=== PATIENT | female | born 1985 | race Caucasian/White ===

== ENCOUNTER 2022-10-19 20:21 | Outpatient (OUT) | payer OTHER, BC, SELFPAY ==
[2022-10-22 22:06] LABS: Age Gdln ACOG Testing Note (.); HPV Aptima Negative (Negative); IGP, Aptima HPV, rfx 16/18,45 Note (.)
== END 2022-10-19 20:22 | disposition home or self-care (01) ==
PROVIDERS: PCP Physician Assistant; Visit Provider Physician Assistant
DX: Z12.4 Encounter for screening for malignant neoplasm of cervix (principal); Z11.51 Encounter for screening for human papillomavirus (HPV)
CPT/HCPCS: 87624; G0145

== ENCOUNTER 2023-10-25 19:27 | Outpatient (REF) | payer BC, SELFPAY ==
[2023-10-31 12:09] LABS: Age Gdln ACOG Testing Note (.); HPV Aptima Negative (Negative); IGP, Aptima HPV, rfx 16/18,45 Note (.)
== END 2023-10-25 19:28 | disposition home or self-care (01) ==
LOC: LAB 19:27
PROVIDERS: PCP Physician Assistant; Visit Provider Obstetrics & Gynecology
DX: Z01.419 Encounter for gynecological examination (general) (routine) without abnormal findings (principal)
CPT/HCPCS: 88175

== ENCOUNTER 2024-10-29 19:46 | Outpatient (REF) | payer BC, SELFPAY ==
[2024-11-01 16:09] LABS: Age Gdln ACOG Testing Note (.); IGP, Aptima HPV, rfx 16/18,45 Note (.)
== END 2024-10-29 19:47 | disposition home or self-care (01) ==
LOC: LAB 19:46
PROVIDERS: PCP Physician Assistant; Visit Provider Physician Assistant
DX: Z01.419 Encounter for gynecological examination (general) (routine) without abnormal findings (principal)
CPT/HCPCS: 87624; 88175

== ENCOUNTER 2024-11-09 09:45 | Outpatient (OUT) | payer BC, SELFPAY ==
--- OUTSIDE RECORDS SUMMARY | 2024-10-29 10:00 | XMS_ITS | Encounter Summary ---
Author Organization [facility] Address [address] [facility] [place] [address] Care Team Providers Care Hoop Rolls Operator Name Role Phone Unavailable Primary Care Provider Unavailabl e Reason for Visit * Reason Comments Well Women Visit Encounter Details Date Type Department Care Team (Late st Contact Info) Description 10/29/2024 10:00 AM EDT Office Visit [facility] [address] [place] [phone] La Lopez PA [address] [facility] [place] [address] Well woman exam with routine gynecological exam; Breast cancer screening by mammogram Social History Tobacco Use Types Packs/Day Years Used Date Smoking Tobacco: Never Assessed Comments No Sex and Gender Information Value Date Recorded Sex Assigned at Not on file Legal Sex Female 10:13 PM EDT Gender Identity Not on file Sexual Orientation Not on file documented as of this encounter Last Filed Vital Signs Vital Sign Reading Time Taken Comments Blood Pressure 112/74 10/29/2024 9:54 AM EDT Pulse - - Temperature - - Respiratory Rate - - Oxygen Saturation - - Inhaled Oxygen Concentration - - Weight 102 kg (223 lb 12.8 oz) 10/29/2024 9:54 A M EDT Height - - Body Mass Index 38.42 10/19/2022 3:44 PM EDT documented in this encounter Progress Notes * JORDYN Brown - 10/29/2024 10:00 AM EDT Reason for Appointment: Patient ID: Laura Maldonado is a 39 y.o. female who presents for Well Women Visit Patient presents today for Annual Exam. MEDICATIONS Current Outpatient Medications Medication Instructions ARIPiprazole (Abilify) 5 MG tablet busPIRone (Buspar) 10 MG tablet lisdexamfetamine (VYVANSE) 30 mg, Oral, Daily semaglutide (OZEMPIC) 1 mg, Subcutaneous sertraline (Zoloft) 100 MG tablet ALLERGIES Allergies Allergen Reactions Hydrocodone-Acetaminophen Other Reaction(s): Not available Hydromorphone Hallucinations Other Reaction(s): Not available PROBLEMS Active Ambulatory Problems Diagnosis Date Noted No Active Ambulatory Problems Resolved Ambulatory Problems Diagnosis Date Noted No Resolved Ambulatory Problems No Additional Past Medical History HISTORY PAST MEDICAL HISTORY SOCIAL HISTORY No past medical history on file. Social History Tobacco Use Smoking status: Not on file Smokeless tobacco: Not on file Substance Use Topics Alcohol use: Not on file Drug use: Not on file FAMILY HISTORY No family history on file. SURGICAL HISTORY Past Surgical History: Procedure Laterality Date CERVICAL BIOPSY W/ LOOP ELECTRODE EXCISION 2018 REVIEW OF SYSTEMS Review of Systems: Review of Systems Constitutional: Negative. HENT: Negative. Eyes: Negative. Respiratory: Negative. Cardiovascular: Negative. Gastrointestinal: Negative. Genitourinary: Negative. Musculoskeletal: Negative. Skin: Negative. Neurological: Negative. All other systems reviewed and are negative. Hematological: Negative. Endocrine: Negative. Allergic/Immunologic: Negative. OBJECTIVE Objective: Physical Exam Constitutional: Appearance: Normal appearance. Genitourinary: Genitourinary Comments: Large breast with history of known benign mass in right breast around 11o clock, denies changes Right Adnexa: not tender and no mass present. Left Adnexa: not tender and no mass present. No cervical discharge. Breasts: Breasts are soft. Right: Normal. Left: Normal. HENT: Head: Normocephalic. Nose: Nose normal. Mouth/Throat: Mouth: Mucous membranes are moist. Cardiovascular: Rate and Rhythm: Normal rate. Pulmonary: Effort: Pulmonary effort is normal. Abdominal: General: Bowel sounds are normal. Palpations: Abdomen is soft. Musculoskeletal: General: Normal range of motion. Cervical back: Normal range of motion. Neurological: General: No focal deficit present. Mental Status: She is alert. Skin: General: Skin is warm and dry. Psychiatric: Mood and Affect: Mood normal. Vitals and nursing note reviewed. Exam conducted with a internal control manager present. Vitals: Estimated body mass index is 38.42 kg/m?? as calculated from the following: Height as of 10/19/22: 5' 4 . Weight as of this encounter: 223 lb 12.8 oz. BP: 112/74 No LMP recorded. Patient has had an implant. ASSESSMENT & PLAN ICD-10-CM 1. Well woman exam with routine gynecological exam Z01.419 THIN PREP TIS PAP AND HR HPV DNA 2. Breast cancer screening by mammogram Z12.31 Bilateral screening mammogram Bilateral screening mammogram Annual Exam: Patient presents today for an annual exam. Patient states she is doing well and has no complaints. Pap was obtained without difficulty. Orders Placed This Encounter Procedures Bilateral screening mammogram Large breasts with history of known benign mass in right breast around 11o clock, denies changes and states does routine self exams Follow Up: Patient is to return in one year for annual unless needed otherwise. Documented by JORDYN Brown on behalf of: JORDYN Brown documented in this encounter Miscellaneous Notes * Addendum Note - Rosalind Das LPN - 10/29/2024 10:00 AM EDTAddended by: ROSALIND DAS on: 10/29/2024 03:56 PM Modules accepted: Orders documented in this encounter Plan of Treatment Upcoming Encounters Date Type Department Care Team (Late st Contact Info) Description 11/04/2025 11:00 AM EDT Procedure Visit [facility] [address] [phone] La Lopez PA [address] [facility] [place] [address] Scheduled Orders Name Type Priority Associated Diagnoses Orde r Schedule Bilateral screening mammogram Imaging Routine Breast cancer screening by mammogram Expected: 10/29/2024 (Approximate), Expires: 12/30/2025 THIN PREP TIS PAP AND HR HPV DNA Pathology and Cytology Routine Well woman exam with routine gynecological exam Ordered: 10/29/2024 documented as of this encounter Visit Diagnoses Diagnosis Well woman exam with routine gynecological exam Routine gynecological examination Breast cancer screening by mammogram documented in this encounter
--- OUTSIDE RECORDS SUMMARY | 2024-11-05 10:30 | XMS_ITS | Encounter Summary ---
Author Organization [facility] Address [address] [facility] [place] [address] Care Team Providers Care Skein Tier Name Role Phone Unavailable Primary Care Provider Unavailabl e Reason for Visit * Reason Comments IUD removal/insertion Encounter Details Date Type Department Care Team (Late st Contact Info) Description 11/05/2024 10:30 AM EDT Procedure Visit [facility] Padilla [facility] [address] [facility] [place] [phone] Mao Han DO [address] [facility] [place] [address] Encounter for IUD removal; Encounter for IUD insertion Social History Tobacco Use Types Packs/Day Years Used Date Smoking Tobacco: Never Assessed Comments No Sex and Gender Information Value Date Recorded Sex Assigned at Not on file Legal Sex Female 10:13 PM EDT Gender Identity Not on file Sexual Orientation Not on file documented as of this encounter Last Filed Vital Signs Vital Sign Reading Time Taken Comments Blood Pressure 122/82 11/05/2024 10:45 AM EDT Pulse - - Temperature - - Respiratory Rate - - Oxygen Saturation - - Inhaled Oxygen Concentration - - Weight 101 kg (222 lb) 11/05/2024 10:45 AM EDT Height - - Body Mass Index 38.11 10/19/2022 3:44 PM EDT documented in this encounter Progress Notes * Rosalind Cantu LPN - 11/05/2024 10:30 AM EDTAssociated Order(s): IUD Removal Post-Procedure Diagnose(s): Encounter for IUD removal Reason for Appointment: Patient ID: Laura Maldonado is a 39 y.o. female who presents for IUD removal/insertion Patient presents today for a IUD Removal appointment. MEDICATIONS Current Outpatient Medications Medication Instructions ARIPiprazole (Abilify) 5 MG tablet busPIRone (Buspar) 10 MG tablet lisdexamfetamine (VYVANSE) 30 mg, Oral, Daily sertraline (Zoloft) 100 MG tablet ALLERGIES Allergies [...] Objective: Physical Exam Constitutional: Appearance: Normal appearance. She is well-developed. Genitourinary: Vulva normal. Cardiovascular: Rate and Rhythm: Normal rate and regular rhythm. Pulmonary: Effort: Pulmonary effort is normal. Breath sounds: Normal breath sounds. Abdominal: General: Bowel sounds are normal. There is no distension. Palpations: Abdomen is soft. Tenderness: There is no abdominal tenderness. There is no guarding or rebound. Musculoskeletal: General: No swelling. Normal range of motion. Right lower leg: No edema. Left lower leg: No edema. Neurological: Mental Status: She is alert and oriented to person, place, and time. Skin: General: Skin is warm and dry. Psychiatric: Mood and Affect: Mood normal. Behavior: Behavior normal. Vitals and nursing note reviewed. Exam conducted with a operations general agent present. Vitals: Estimated body mass index is 38.11 kg/m?? as calculated from the following: Height as of 10/19/22: 5' 4 . Weight as of this encounter: 222 lb. BP: 122/82 No LMP recorded. Patient has had an implant. ASSESSMENT & PLAN Assessment/Plan Encounter Diagnosis: (Z30.432) Encounter for IUD removal (Z30.430) Encounter for IUD insertion Plan: Levonorgestrel intrauterine device, POCT , urine manually resulted IUD Removal Date/Time: 11/05/2024 2:52 PM Performed by: Mao Han DO Authorized by: Mao Han DO Consent: Consent obtained: Written Consent given by: Patient Procedure risks and benefits discussed: yes Patient questions answered: yes Patient agrees, verbalizes understanding, and wants to proceed: yes Educational handouts given: no Instructions and paperwork completed: yes Procedure: Removed with no complications: no Comments: IUD was not removed in office and patient is going to have to proceed to OR for removal and reinsertion. IUD Removal: Patient presents today for removal of IUD. Written consent was obtained and patient was placed in dorsal lithotomy position with feet in stirrups. A sterile speculum was inserted into the vagina and the cervix was visualized. The IUD was not successfully removed and will need to be removed in OR. Discussed options with patient and patient desires to proceed to OR for removal. Patient will discussdate with Flag Signaler prior to leaving office. Follow Up: Patient is to return to the office for annual exam unless needed otherwise Documented by Rosalind Cantu LPN on behalf of: Mao Han DO documented in this encounter Plan of Treatment Upcoming Encounters Date Type Department Care Team (Late st Contact Info) Description 11/04/2025 11:00 AM EDT Procedure Visit [facility] [address] [place] [phone] La Lopez PA [address] [place] [address] documented as of this encounter Procedures Procedure Name Priority Date/Time Associated Diagnosis Comments IUD REMOVAL Routine 11/05/2024 2:52 PM EDT Encounter for IUD removal POCT , URINE Routine 11/05/2024 10:53 AM EDT Encounter for IUD insertion documented in this encounter Results * IUD Removal (11/05/2024 2:52 PM EDT) Narrative Rosalind Cantu LPN - 11/05/2024 2:52 PM EDT Rosalind Cantu LPN 11/05/2024 3:39 PM IUD Removal Date/Time: 11/05/2024 2:52 PM Performed by: Mao Han DO Authorized by: Mao Han DO Consent: Consent obtained: Written Consent given by: Patient Procedure risks and benefits discussed: yes Patient questions answered: yes Patient agrees, verbalizes understanding, and wants to proceed: yes Educational handouts given: no Instructions and paperwork completed: yes Procedure: Removed with no complications: no Comments: IUD was not removed in office and patient is going to have to proceed to OR for removal and reinsertion. Mao Han DO IN CLINIC/BEDSIDE ORDERABLES Fin al Result * POCT , urine manually resulted (11/05/2024 10:53 AM EDT) Preg Test, Ur Negative Negative Urine 11/05/2024 10:5 3 AM EDT Mao Han DO POINT OF CARE TEST ENTER/EDIT OR DERABLES Final Result documented in this encounter Visit Diagnoses Diagnosis Encounter for IUD removal Encounter for IUD insertion Insertion of intrauterine contraceptive device documented in this encounter
--- OUTSIDE RECORDS SUMMARY | 2024-11-09 09:49 | XMS_ITS | Encounter Summary ---
Author Organization [facility] Address [address] [facility] [place] [address] Care Team Providers Care Golf Club Manager Name Role Phone Unavailable Primary Care Provider Unavailabl e Encounter Details Date Type Department Care Team (Late Contact Info) Description 09/27/2022 Abstract [facility]ST[facility] [address] [place] [address] Mao Han DO [address] [facility] [address] [place], [place] [address] Social History Tobacco Use Types Packs/Day Years Used Date Smoking Tobacco: Never Assessed Comments Unknown Sex and Gender Information Value Date Recorded Sex Assigned at Not on file Legal Sex Female 10:13 PM EDT Gender Identity Not on file Sexual Orientation Not on file documented as of this encounter Plan of Treatment Upcoming Encounters Date Type Department Care Team (Late Contact Info) Description 11/04/2025 11:00 AM EDT Procedure Visit CHARLY CASTILLO [address] [phone] La Lopez PA [address] [facility] [address] [place], [facility] documented as of this encounter Visit Diagnoses Not on filedocumented in this encounter
--- OUTSIDE RECORDS SUMMARY | 2024-11-09 09:49 | XMS_ITS | Encounter Summary ---
Author Organization [facility] Address [address] [place] [address] Care Team Providers Care Cargo Router Name Role Phone Unavailable Primary Care Provider Unavailabl e Encounter Details Date Type Department Care Team (Late Contact Info) Description 10/29/2024 Bamboo flowsheet CHARLY CASTILLO [address] [facility] [place] [phone] La Lopez PA [address] [facility] [address] [place], [place] [address] Social History Tobacco Use Types Packs/Day Years [...] AM EDT Procedure Visit CHARLY CASTILLO [address] [facility] [place] [phone] La Lopez PA [address] [facility] [address] [place], [place] [address] documented as of this encounter Visit Diagnoses Not on filedocumented in this encounter
--- OUTSIDE RECORDS SUMMARY | 2024-11-09 09:49 | XMS_ITS | Clinical Summary ---
Author Organization [facility] Address [address] [place] [address] Care Team Providers Care Director Of Strategic Marketing Name Role Phone Unavailable Primary Care Provider Unavailabl e Allergies Active Allergy Reactions Criticality Noted Date Comments Hydrocodone-Acetaminophen 10/19/2022 Other Reaction(s): Not available Hydromorphone Hallucinations 08/01/2018 Other Reaction(s): Not available Medications ARIPiprazole (Abilify) 5 MG tablet 3 Active busPIRone (Buspar) 10 MG tablet 3 Active sertraline (Zoloft) 100 MG tablet 3 Active lisdexamfetamin e (Vyvanse) 30 MG capsule Take 30 mg by mouth Daily 4 Active semaglutide (Ozempic) 2 MG/1.5ML solution pen-injector Inject 1 mg under the skin 11/06/19 Discontinu ed(Other) Hospital, Clinic, or Other Facility Administered Medication Ordered Dose Route Frequency Start Date End Date Status Levonorgestrel intrauterine deviceIndications:Enc ounter for IUD removal IU Daily 11/06/2024 Active Levonorgestrel intrauterine deviceIndications:Enc ounter for IUD insertion IU Daily 11/05/2024 11/05/2024 Discontinued Encounters Date Type Department Care Team Description 11/05/2024 10:30 AM EDT Procedure Visit CHARLY CASTILLO [address] [place] [address] [place] [address] Mao Han DO Encounter for IUD removal; Encounter for IUD insertion 11/04/2024 Travel 11/02/2024 Orders Only [facility] [address] [place] [phone] Ramila Wyatt MA 10/29/2024 10:00 AM EDT [place] [phone] La Lopez PA Well woman exam with routine gynecological exam; Breast cancer screening by mammogram 10/29/2024 Clinisync Result Encounter [facility] External Department Unsolicited La Lopez PA 10/29/2024 Bamboo flowsheet [facility] [address] [place] [phone] La Lopez PA from Last 3 Months Social History Tobacco Use Types Packs/Day Years Used Date Smoking Tobacco: Never Assessed Comments No Sex and Gender Information Value Date Recorded Sex Assigned at Not on file Legal Sex Female 10:13 PM EDT Gender Identity Not on file Sexual Orientation Not on file Last Filed Vital Signs Vital Sign Reading Time Taken Comments Blood Pressure 122/82 11/05/2024 10:45 AM EDT Pulse - - Temperature - - Respiratory Rate - - Oxygen Saturation - - Inhaled Oxygen Concentration - - Weight 101 kg (222 lb) 11/05/2024 10:45 AM EDT Height 162.6 cm (5' 4 ) 10/19/2022 3:44 PM EDT Body Mass Index 38.11 10/19/2022 3:44 PM EDT Plan of Treatment Upcoming Encounters Date Type Department Care Team (Late st Contact Info) Description 11/04/2025 11:00 AM EDT Procedure Visit [facility] [address] [place] [phone] La Lopez PA [address] [place] [address] Procedures Procedure Name Priority Date/Time Associated Diagnosis Comments IUD REMOVAL Routine 11/05/2024 2:52 PM EDT Encounter for IUD removal POCT , URINE Routine 11/05/2024 10:53 AM EDT Encounter for IUD insertion IGP,APTIMA HPV,AGE GDLN Routine 10/29/2024 9:46 AM EDT PAP SMEAR Routine 10/29/2024 12:00 AM EDT from Last 3 Months Results * IUD Removal (11/05/2024 2:52 PM [...] CARE TEST ENTER/EDIT OR DERABLES Final Result * IGP,APTIMA HPV,AGE GDLN (10/29/2024 9:46 AM EDT) AGE GDLN ACOG TESTING Note . [facility] Comment: TESTS RESULT FLAG UNITS REF RANGE LAB Clinician Provided Cytology Information Source.............Cervix;Endocervix No. of containers..01 ThinPrep Vial Age Manisha Lai... FLAG LEGEND: L-Low Normal,H-High Normal,LL-Alert Low,HH-Alert High <-Panic Low,>-Panic High,A-Abnormal,AA-Critical Abnormal Performed at: 01 =[facility] [address] Jyothi Hassan MD, IGP, APTIMA HPV, RFX 16/18,45 Note . [facility] Comment: TESTS RESULT FLAG UNITS REF RANGE LAB DIAGNOSIS: 02 NEGATIVE FOR INTRAEPITHELIAL LESION OR MALIGNANCY. Specimen adequacy: 02 Satisfactory for evaluation. No endocervical component is identified. Areas of partially obscuring inflammatory exudate are present. Performed by: 02 Carlos Gonzalez, Steward/Stewardess (ASCP) . 02 Note: Note 02 The Pap smear is a screening test designed to aid in the detection of premalignant and malignant conditions of the uterine cervix. It is not a diagnostic procedure and should not be used as the sole means of detecting cervical cancer. Both false-positive and false-negative reports do occur. Test Methodology: Note 02 This liquid based ThinPrep(R) pap test was screened with the use of an image guided system. HPV Genotype Reflex Note 02 Criteria not met, HPV Genotype not performed. FLAG LEGEND: L-Low Normal,H-High Normal,LL-Alert Low,HH-Alert High <-Panic Low,>-Panic High,A-Abnormal,AA-Critical Abnormal Performed at: [address] [address] Jyothi Hassan MD, HPV APTIMA Negative Negative [facility] Comment: This nucleic acid amplification test detects fourteen high- risk HPV types (16,18,31,33,35,39,45,51,52,56,58,59,66,68) without differentiation. Performed at: =[address] [id number] Hide Shaker: Jyothi Hassan MD, Phone: [phone] Performed at: [address] [id number] Hide Shaker: Jyothi Hassan MD, Phone: [phone] 10/29/2024 9:46 AM EDT 10/29/2024 9:41 PM EDT Narrative [facility] - 11/01/2024 4:09 PM EDT BRUSH-SPATULA CERVIX ENDOCERVIX [facility] BLOOD ORDERABLES Final Resul t Performing Organization Address [facility]/ZIP Co de Phone Number [facility] * Pap Smear (10/29/2024 12:00 AM EDT) Swab Cervical swab / Unknown [facility] CYTOLOGY ORDERABLES Final Re sult Performing Organization Address [facility]/ZIP Co de Phone Number EXTERNAL LAB from Last 3 Months Insurance [facility]
--- OUTSIDE RECORDS SUMMARY | 2024-11-09 09:49 | XMS_ITS | Encounter Summary ---
Author Organization [facility] Address [address] [facility] [place] [address] Care Team Providers Care Safety Investigator Name Role Phone Unavailable Primary Care Provider Unavailabl e Encounter Details Date Type Department Care Team (Late Contact Info) Description 10/19/2022 Abstract [facility]y CASTILLO [address] [facility] [place] [phone] La Lopez PA [address] [facility] [address] [place], [place] [address] Social History Tobacco Use Types Packs/Day Years [...] AM EDT Procedure Visit CHARLY CASTILLO [address] [facility] [place] [phone] La Lopez PA [address] [facility] [address] [place], [id number] documented as of this encounter Visit Diagnoses Not on filedocumented in this encounter
--- OUTSIDE RECORDS SUMMARY | 2024-11-09 09:49 | XMS_ITS | Clinical Summary ---
Author Organization [facility] Address [id number] [address] [place] [address] Care Team Providers Care Liquefaction And Regasification Helper Name Role Phone Unavailable Primary Care Provider Unavailabl e Allergies Active Allergy Reactions Criticality Noted Date Comments Hydromorphone Hallucinations 08/01/2018 Hydrocodone-Acetaminophen 08/01/2018 Medications no122/iron/folic acid ( MULTI ORAL) Take 1 tablet by mouth daily. Active ferrous sulfate 325 (65 FE) mg tablet Take 325 mg by mouth daily with breakfast. Active Active Problems No known active problems Immunizations Immunization Administration Dates Next Due Hep B, Adolescent or Pediatric 11/09/2011 Hepatitis B 10/19/2011 PPD Test 11/14/2013, 3,11/20/2012,10/04/2012,0 09/19/2012,10/19/2011 Tdap 09/19/2012 Family History Medical History Relation Name Comments Mental illness Father Cancer Maternal Grandfather LUNG Breast cancer Maternal Grandmother Osteoporosis Maternal Grandmother Thyroid disease Maternal Grandmother Diabetes Mother Heart disease Mother Hyperlipidemia Mother Hypertension Mother Alzheimer's disease Paternal Grandfather Diabetes Paternal Grandfather Stomach cancer Paternal Grandfather Relation Name Status Comments Father Maternal Grandfather Maternal Grandmother Mother Paternal Grandfather Social History Tobacco Use Types Packs/Day Years Used Date Smoking Tobacco: Never Smokeless Tobacco: Never Childcare Answer Date Recorded Childcare Unknown 09/20/2018 Employment Answer Date Recorded Employment Unknown 09/20/2018 Purpose - Life Answer Date Recorded Purpose and direction in life Unknown Comments No Sex and Gender Information Value Date Recorded Sex Assigned at Not on file Legal Sex Female 10:13 PM EDT Gender Identity Not on file Sexual Orientation Not on file Last Filed Vital Signs Vital Sign Reading Time Taken Comments Blood Pressure 109/66 08/04/2018 12:12 PM EDT Pulse 96 08/04/2018 12:12 PM EDT Temperature - - Respiratory Rate - - Oxygen Saturation - - Inhaled Oxygen Concentration - - Weight 80.7 kg (177 lb 14.6 oz) 019 12:12 PM EDT Height 157.5 cm (5' 2 ) 11/16/2013 1:13 PM EDT Body Mass Index 32.54 11/16/2013 1:13 PM EDT Plan of Treatment Health Maintenance Due Date Last Done Comments Depression Screening 1995 Tobacco Screening 1995 Adult BMI Screening 2001 Pap Smear 2004 DTaP,Tdap and Td Vaccines (2 - Td or Tdap) 09/19/2022 09/19/2012 Influenza Vaccine 12/10/2024 Medical Devices Not on file Insurance [employer]
--- OUTSIDE RECORDS SUMMARY | 2024-11-09 09:49 | XMS_ITS | Encounter Summary ---
Author Organization [facility] Address [address] [facility] [place] [address] Care Team Providers Care Abatement Worker Name Role Phone Unavailable Primary Care Provider Unavailabl e Encounter Details Date Type Department Care Team (Late st Contact Info) Description 10/29/2024 Clinisync Result Encounter [facility] External Department Unsolicited La Lopez PA [address] [place], [facility] Social History Tobacco Use Types Packs/Day Years [...] EDT Procedure Visit [facility] Valerie CASTILLO [address] [place] [id number] La Lopez PA [address] [address] documented as of this encounter Procedures Procedure Name Priority Date/Time Associated Diagnosis Comments IGP,APTIMA HPV,AGE GDLN Routine 10/29/2024 9:46 AM EDT documented in this encounter Results * IGP,APTIMA HPV,AGE GDLN (10/29/2024 9:46 AM EDT) AGE GDLN ACOG TESTING Note . TB Comment: TESTS RESULT FLAG UNITS REF RANGE LAB Clinician Provided Cytology Information Source.............Cervix;Endocervix No. of containers..01 ThinPrep Vial Age Manisha JEFF Joelle... 28 FLAG LEGEND: L-Low Normal,H-High Normal,LL-Alert Low,HH-Alert High <-Panic Low,>-Panic High,A-Abnormal,AA-Critical Abnormal Performed at: 01 [facility] [address] [place] [address] Jyothi Hassan MD, IGP, APTIMA HPV, RFX [birth year] Note . [facility] Comment: TESTS RESULT FLAG UNITS REF RANGE LAB DIAGNOSIS: 02 NEGATIVE FOR INTRAEPITHELIAL LESION OR MALIGNANCY. Specimen adequacy: 02 Satisfactory for evaluation. No endocervical component is identified. Areas of partially obscuring inflammatory exudate are present. Performed by: Antonieta Gonzalez, Import/Export Agent ([facility]) . 02 Note: Note 02 The Pap [...] <-Panic Low,>-Panic High,A-Abnormal,AA-Critical Abnormal Performed at: [address] [id number] Jyothi Hassan MD, HPV APTIMA Negative Negative TB Comment: This nucleic acid amplification test detects fourteen high- risk HPV types (16,18,31,33,35,39,45,51,52,56,58,59,66,68) without differentiation. Performed at: =[address] [id number] Powder Carrier: Jyothi Hassan MD, Phone: [phone] Performed at: [address] [id number] Powder Carrier: Jyothi Hassan MD, Phone: [phone] 10/29/2024 9:46 AM EDT 10/29/2024 9:41 PM EDT Narrative [facility] - 11/01/2024 4:09 PM EDT BRUSH-SPATULA CERVIX ENDOCERVIX us [facility] BLOOD ORDERABLES Final Resul t [facility] documented in this encounter Visit Diagnoses Not on filedocumented in this encounter
--- OUTSIDE RECORDS SUMMARY | 2024-11-09 09:49 | XMS_ITS | Encounter Summary ---
Author Organization [facility] Address [address] [place] [address] Care Team Providers Care Manager Roofing Name Role Phone Unavailable Primary Care Provider Unavailabl e Encounter Details Date Type Department Care Team (Latest Contact Info) Description 11/04/2024 Travel Social History Tobacco Use Types Packs/Day Years [...] Description 11/04/2025 11:00 AM EDT Procedure Visit NOMRichy CASTILLO [address] [place] [address] La Lopez PA [address] [place], [place] [id number] documented as of this encounter Visit Diagnoses Not on filedocumented in this encounter
== END 2024-11-09 09:46 | disposition home or self-care (01) ==
LOC: PST 09:47
PROVIDERS: Visit Provider Obstetrics & Gynecology
DX: Z01.818 Encounter for other preprocedural examination (principal); T83.39XA Other mechanical complication of intrauterine contraceptive device, initial encounter

== ENCOUNTER 2024-11-21 06:31 | Day surgery (SDC) | payer BC, SELFPAY ==
[2024-11-09 10:24] VITALS: BP 139/91; PULSE 71; TEMP 36.3; O2SAT 97; BMI 40.6
[2024-11-21 06:42] LABS: Hematocrit 39.6 % (36.0-48.0); Hemoglobin 13.9 g/dL (12.0-16.0); Immature Granulocytes Abs Auto 0.01 10^3/uL (0.00-0.03); Immature Granulocytes Pct Auto 0.1 % (0.0-0.5); Lymphocytes Absolute Auto 1.7 10^3/uL (1.2-3.8); Mean Corpuscular HGB Conc 35.1 g/dL (29.9-35.2); Mean Corpuscular Hemoglobin 33.4 pg (26.7-34.0); Mean Corpuscular Volume 95.2 fL (81.0-99.0); Platelet Count 257 10^3/uL (150-450); Red Blood Count 4.16 10^6/uL (4.20-5.40); White Blood Count 7.0 10^3/uL (4.0-11.0)
[2024-11-21 06:45] VITALS: BP 133/91; PULSE 90; TEMP 36.3; O2SAT 98; BMI 40.3
--- NOTE | 2024-11-21 09:15 | PM.ONB ---
Brief Operative Note Date of procedure: 11/21/24 Pre-op diagnosis general: retained iud Post-op diagnosis: same as pre-op Procedure: NAME OF PROCEDURE: [d&c hysteroscopy] PROCEDURE: The patient was taken back to the Operating Room where she was prepped and draped in normal sterile fashion after being placed under general anesthesia without difficulty. She was also placed in the dorsal lithotomy position. A weighted speculum was placed in the patient?s vagina. The anterior lip of the cervix was identified and grasped with a single tooth tenaculum. The patient?s uterus was then sounded roughly to [? 9] cm. The patient was then gently dilated using Hegar dilators. The polyp forcep was used to grab the iud, and iud was removed. a new iud was placed using the mirena device. The single tooth tenaculum was then removed from the patient's anterior lip of the cervix where excellent hemostasis was noted. Anesthesia: MAC Surgeon: Mao Han Estimated blood loss (mL): 5 Pathology: none sent Condition: stable Disposition: PACU Urinary Catheter Management Urinary Catheter Management Urethral: Cath placed during this visit: no
[2024-11-21 09:18] VITALS: BP 146/89; PULSE 93; TEMP 36.1; O2SAT 92
[2024-11-21 09:34] VITALS: BP 137/91; PULSE 79; O2SAT 95
[2024-11-21 09:49] VITALS: BP 143/78; PULSE 82; O2SAT 95
== END 2024-11-21 09:49 | disposition home or self-care (01) ==
PROVIDERS: Visit Provider Obstetrics & Gynecology
PROC: (CPT 940; principal; 2024-11-21 08:05)
DX: Z30.433 Encounter for removal and reinsertion of intrauterine contraceptive device (principal); K21.9 Gastro-esophageal reflux disease without esophagitis; Z87.442 Personal history of urinary calculi; F41.9 Anxiety disorder, unspecified; F32.A Depression, unspecified
CPT/HCPCS: 58300; 58301; 36415; 84702; 85025; J1100; J1885; J2250; J2704